=== PATIENT | male | born 1940 | race Caucasian/White ===

== ENCOUNTER 2017-06-05 07:22 | Outpatient (CLI) | payer MEDICARE, BC ==
--- NOTE | 2017-06-05 08:30 | CT ---
CT PULMONARY LUNG SCAN NONCONTRAST: History: Tobacco abuse. Shortness of breath. Low dose screening. FINDINGS: At the medial aspect of the superior segment right lower lobe, a well marginated slightly lobular no ncalcified soft tissue density nodule is 1.4 cm length x 1.5 cm depth. A 0.5 cm subpleural nodule is present within the left lower lobe anterior lung base. Scattered calcified granulomata, consistent with healed granulomatous disease. Lack of contrast limits evaluation of the mediastinum. There is calcification in the arterial struct ures. No bulky adenopathy is apparent. IMPRESSION: 1. Lung rads category 4. Suspicious finding requiring additional clinical evaluation. 2. Dominant nodule in the right lower lobe measures up to 1.5 cm greater diameter and warrants furth er evaluation. Please consider pulmonary medicine evaluation and radionuclide PET scan for further c haracterization. Code T POS: CARMELO
== END 2017-06-05 07:23 | disposition home or self-care (01) ==
LOC: CT 07:22
PROVIDERS: ATTEND Family Medicine
DX: Z87.891 Personal history of nicotine dependence (principal); R91.1 Solitary pulmonary nodule
CPT/HCPCS: G0297

== ENCOUNTER 2017-06-12 08:45 | Outpatient (CLI) | payer MEDICARE, BC ==
--- NOTE | 2017-06-12 12:22 | CT ---
CT ABDOMEN WITH AND WITHOUT CONTRAST: HISTORY: Pulmonary nodule. A pancreatic mass was seen on the chest CT. COMPARISON: CT chest from 06/05/2017. TECHNIQUE: Multiple contiguous axial images were obtained in a CT of the abdomen with and without IV contrast, and p.o. contrast was administered. Post contrast images were obtained in the arterial and portal v enous phases. FINDINGS: There is a large cystic mass involving the majority of the pancreas. This is along the body and alonso l of the pancreas and extends to the spleen. This measures 16.9 x 8.4 x 7 cm in size. There is enh ancement of the wall of this mass but no internal septations or mass-like areas of enhancement are s een in this mass. There is no significant dilatation of the pancreatic duct, and this mass appears to extend only along the anterior aspect of the pancreas. There are hypodensities in the bilateral kidneys, measuring up to 2.6 cm in size, which represent cy sts. The liver, adrenal glands, and spleen are unremarkable. The gallbladder has been removed. The visualized large and small bowel are unremarkable. The appendix is normal. Atherosclerotic donato cifications are seen in the aorta. No abdominal adenopathy is seen. Please see dedicated chest CT for findings above the diaphragm. Mild degenerative changes are seen in the spine. IMPRESSION: 1. There is a large cystic mass involving the pancreas. This does not demonstrate mass-like enhanc ement and may represent a pseudocyst. Correlate with history of pancreatitis. A cystic pancreatic neoplasm cannot be entirely excluded, and a follow-up CT in three to six months is recommended to e nsure stability. 2. Bilateral renal cysts. POS: CARMELO
== END 2017-06-12 08:46 | disposition home or self-care (01) ==
LOC: CT 08:45
PROVIDERS: ATTEND Internal Medicine Critical Care Medicine
DX: K86.89 Other specified diseases of pancreas (principal); R91.8 Other nonspecific abnormal finding of lung field; R19.00 Intra-abdominal and pelvic swelling, mass and lump, unspecified site; N28.1 Cyst of kidney, acquired
CPT/HCPCS: 74170

== ENCOUNTER 2017-06-18 13:41 | Outpatient (CLI) | payer MEDICARE, BC ==
--- NOTE | 2017-06-18 20:26 | PET ---
NUCLEAR MEDICINE FDG PET CT: (Positron Emission Tomography) DATE: 06/18/17 HISTORY: 77-year-old male with newly diagnosed right lower lobe non-small cell lung cancer. COMPARISON: None. TECHNIQUE: IV injection F-18 Fluorodeoxyglucose (FDG) dose: 10.4 mCi PET and attenuation-correction CT performed from skull base to proximal thighs. FINDINGS: SUV (standard uptake value) numbers given are maximum SUV's: Regarding the very large pancreatic low attenuation mass, the majority of the volume of the mass is not hypermetabolic. However, there are small, patchy wisps of peripheral strands of tissue with increased FDG uptake mckay t appear more solid. For example, one area located posteromedially and inferiorly has SUV of 3.8. There are no hypermetabolic mesenteric, arturo hepatis, intrahepatic, or retroperitoneal lymph nodes. There is a focus of increased FDG uptake at the splenic flexure of the colon with SUV of 9.7. This m ay or may not represent a small colon cancer, and correlation with results of latest colonoscopy is recommended. There is a long segment of contiguously increased uptake throughout the sigmoid colon w here there are numerous sigmoid colonic diverticula. This is questionable for localized sigmoid coli tis. No hypermetabolic intrapelvic lymphadenopathy. The small posteriorly located right lower lobe pulmonary nodule is not hypermetabolic (SUV 1.2). There is no abnormal FDG localization in the chest or neck. Left-sided implantable vascular access p ort is noted. IMPRESSION: 1. Of the very large, predominantly cystic pancreatic mass, small portions are mildly hypermetaboli c. 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 Percutaneous biopsy would be fred hnically very difficult. 2. A small focus of hypermetabolic activity in the distal transverse/splenic flexure of the colon. Recommend correlation with results of colonoscopy to rule out colon cancer. 3. A long segment of sigmoid colon is hypermetabolic, questionable for localized colitis. Recommend correlation with results of colonoscopy. 4. The small right lower lobe pulmonary nodule is not hypermetabolic. LELA Gama POS: CARMELO
== END 2017-06-18 13:42 | disposition home or self-care (01) ==
LOC: PET 13:41
PROVIDERS: ATTEND Internal Medicine Critical Care Medicine
DX: R91.1 Solitary pulmonary nodule (principal); C18.7 Malignant neoplasm of sigmoid colon; K86.2 Cyst of pancreas; K63.89 Other specified diseases of intestine
CPT/HCPCS: 78815; A9552

== ENCOUNTER 2017-12-24 09:03 | Outpatient (CLI) | payer MEDICARE, OTHER ==
[2017-12-24 09:41] LABS: Estimated GFR-MDRD - POC Greater than 90
--- NOTE | 2017-12-24 11:53 | CT ---
CT CHEST WITH CONTRAST: CT ABDOMEN WITH CONTRAST: HISTORY: Lung nodule (R91.1). Cyst of pancreas. COMPARISON: CT from 06/12/2017. FINDINGS: The posterior segment right lower lobe pulmonary nodule measures 1.5 cm, unchanged in size since the comparison examination. The small 4 mm nodule in the anterior segment left lower lobe is unchanged. There is fat along the left major fissure. There is atelectasis in the left lung base. No new pulmonary nodule. No focal air space consolidation, pneumothorax, or effusion. No mediastinal adenopathy. Moderate co ronary artery calcifications. There is a very mild decrease in the craniocaudad dimension of the fluid collection, abutting the ant erior pancreas, most indicative of a pseudo cyst. There are a few enhancing septations. This does n ot have the appearance of a mucinous or serous neoplasm. The liver and spleen are unremarkable. There is infrarenal aortic ectasia, measuring up to 2.5 cm, w ithout aneurysmal dilatation. Prior cholecystectomy. Bilateral renal hypodensities with a 2.5 cm right renal hypodensity with laye ring milk of calcium. IMPRESSION: 1. No interval size increase of the pulmonary nodules, which did not have activity on the PET scan, likely benign in nature. 2. Very mild size decrease of the fluid collection abutting the pancreas and the greater curvature o f the stomach, likely a pseudo cyst. Transgastric drainage may be beneficial, if clinically warrante d. Nonemergent gastrointestinal followup recommended. 3. Healing left anterior third, fourth, and fifth rib fractures. CODE LN POS: CARMELO
[2017-12-24] MEDS ORDERED: Iopamidol 370 76% 100 ML VIAL ONE (14:47)
== END 2017-12-24 09:04 | disposition home or self-care (01) ==
LOC: CT 09:03
PROVIDERS: ATTEND Internal Medicine Critical Care Medicine
DX: R91.1 Solitary pulmonary nodule (principal); R93.3 Abnormal findings on diagnostic imaging of other parts of digestive tract; R91.8 Other nonspecific abnormal finding of lung field; R18.8 Other ascites; S22.42XD Multiple fractures of ribs, left side, subsequent encounter for fracture with routine healing; Z80.0 Family history of malignant neoplasm of digestive organs
CPT/HCPCS: 71260; 74160; 82565

== ENCOUNTER 2018-06-19 09:06 | Outpatient (CLI) | payer MEDICARE, OTHER ==
--- NOTE | 2018-06-19 12:41 | CT ---
NONCONTRAST CT THORAX: 06/19/2018 HISTORY: Lung nodules bilaterally. Follow-up evaluation. COMPARISON: 12/24/2017 and 06/05/2017 FINDINGS: The posterior segment right lower lobe pulmonary nodule, measuring 1.5 cm, is again seen and is overa ll stable in size. The tiny pulmonary nodule at the anterolateral aspect of the left lower lobe, cassia suring 4 mm, is also again seen and is stable. However, there has been interval development of sever al new nodular densities within the lungs bilaterally, with slightly irregular margins and slight adj acent ground glass densities present. There is a 6 mm nodule at the inferior aspect of the right low er lobe, an 8 mm pulmonary nodule in the superior segment of the right lower lobe, an 8 mm pulmonary nodule in the left upper lobe, with a smaller, approximately 5 mm, pulmonary nodule at the lateral as pect of the left upper lobe, and an additional tiny, irregular nodular density within the medial aspe ct of the left upper lobe (image 72, series 3). Interval development of additional nodular densities with ground glass densities could be related to an infectious process, but metastatic disease cannot be excluded, and followup to resolution is recommended. The nodule in the right lower lobe is stabl e in size, dating back to a study on 06/15/2017, and no abnormal uptake is seen in this pulmonary nod ule on PET CT exam on 06/18/2017. There is minimal dependent atelectasis bilaterally. Dual-lead left subclavian cardiac pacemaker device remains in place. Vascular calcification is again seen in the coronary arteries, as well as involving the thoracic aorta. Calcified mediastinal and left hilar lymph nodes are present with a calcified granuloma again seen in the left lower lobe. The large fluid collection seen in the upper abdomen is again seen and incompletely imaged but is sta ble in size in greatest dimension, which is visualized on this exam, measuring 17.2 cm. Post cholecy stectomy changes are seen. No other interval change. IMPRESSION: 1. Stable pulmonary nodules in the bilateral lower lobes, the largest pulmonary nodule measuring 1.5 cm. However, there has been interval development of new scattered pulmonary nodules within the lung s bilaterally, as described above, which have irregular margins and slight ground glass densities. F indings could potentially be related to an infectious process, and a followup evaluation is recommend ed, as metastatic disease cannot be entirely excluded, given the multiplicity of pulmonary nodules. 2. Incompletely imaged fluid collection abutting the pancreas and greater curvature of the stomach, which may represent a large pseudocyst. This is overall stable in greatest dimension. 3. Stable, remote left-sided rib fractures. CODE T POS: SJ
== END 2018-06-19 09:07 | disposition home or self-care (01) ==
LOC: BICCT 09:06
PROVIDERS: ATTEND Internal Medicine Critical Care Medicine
DX: R91.8 Other nonspecific abnormal finding of lung field (principal); S22.32XA Fracture of one rib, left side, initial encounter for closed fracture
CPT/HCPCS: 71250

== ENCOUNTER 2018-12-16 12:23 | Outpatient (CLI) | payer MEDICARE, OTHER ==
[~2018-12-16 12:23] MED LIST: Iopamidol 370 76% 100 ML VIAL ONE
[2018-12-16 13:14] LABS: Estimated GFR-MDRD - POC Greater than 90
--- NOTE | 2018-12-16 14:03 | CT ---
EXAM: CT thorax with IV contrast CT abdomen with IV contrast PROVIDED CLINICAL HISTORY: Patient with lung nodules. Follow-up evaluation requested. Patient also has history of pancreatic pse udocyst and follow-up imaging was requested. COMPARISON: CT chest and abdomen on 12/24/[address] thorax on 06/19/2018. FINDINGS: CT thorax: A 1.6 cm right lower lobe pulmonary nodule is seen with previous measurement of 1.5 cm. A tiny approx imately 5 mm pulmonary nodule in the anterolateral aspect left lower lobe (image 41, series 3) is also again seen and stable. There were additional pulmonary nodules seen on study on 06/19/2018 which have now resolved including nodular densities within the left upper lobe and right middle lobe as well as at the anterolateral aspect of the right lower lobe which may have been related to infectious process on prior exam. A 6 mm pulmonary nodule in the left lower lobe with adjacent irregular nodular densities is also no longer visualized. No additional discrete pulmonary nodule or mass is se en in the lungs bilaterally. There is no evidence of a pleural effusion. Linear densities are seen at the left lung base probably related to atelectasis. There is no evidence of lymphadenopathy. Calcified mediastinal and left hilar lymph nodes are again s een. A left subclavian cardiac pacemaker device remains in place. Vascular calcifications are seen in the thoracic aorta. Osseous structures have a normal appearance except for minimal degenerative changes in the thoracic spine. CT abdomen: The large cystic pancreatic structure is again seen occupying the body and tail of the pancreas. This large cystic structure measures 17 cm x 8.3 cm in maximal AP dimensions with previous measurement of 17.2 cm x 8 cm. Given differences in slice selection, this has not significantly changed in size a nd again may be related to a large pancreatic pseudocyst. Postcholecystectomy changes are again seen. There is a stable 2.6 cm hypodense lesion midportion right kidney with calcification seen in the depe ndent portion of this cystic lesion. Subcentimeter too small to characterize hypodense lesions are also again seen in each kidney. The liver, spleen, and right adrenal gland have a normal CT appearance. A stable 1.3 cm left adrenal nodule is again seen, and this adrenal nodule is stable in size when compared to a prior study on 06/12/2017. Vascular calcifications are seen in the abdominal aorta involving the iliac arteries. Mild focal ecta surjit of the infrarenal abdominal aorta. There is a stable small increased density nodule which may represent calcification within the right m id abdomen posterior to the colon. The appendix is visualized and normal in caliber; although, the tip of the appendix is incompletely i earlene. Degenerative changes are again seen in the spine with left convex scoliosis of the lumbar spine. IMPRESSION: 1. Stable bilateral lower lobe pulmonary nodules measuring 1.6 cm at the right lung base and 5 mm at the left lung base. The additional previously described scattered pulmonary nodules with associated mild groundglass densities scattered within the lungs bilaterally on study of 06/19/2018 have resolve d and may have been related to infectious process given interval resolution. No new pulmonary nodule is seen. 2. 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 3. Stable subcentimeter too small to characterize hypodense lesions in each kidney with stable cystic lesion midportion right kidney with calcification seen along the posterior margin consistent with Bosniak type II cystic renal lesion. 4. Stable increased density nodule right mid abdomen posterior to the colon of uncertain etiology. 5. Stable left adrenal nodule.
== END 2018-12-16 12:24 | disposition home or self-care (01) ==
LOC: BICCT 12:23
PROVIDERS: ATTEND Internal Medicine Critical Care Medicine
DX: K86.3 Pseudocyst of pancreas (principal); Q61.8 Other cystic kidney diseases; R91.8 Other nonspecific abnormal finding of lung field
CPT/HCPCS: 71260; 74160; 82565; Q9967

== ENCOUNTER 2019-06-08 09:18 | Outpatient (CLI) | payer MEDICARE, OTHER ==
[2019-06-08 09:59] LABS: Estimated GFR-MDRD - POC Greater than 90
--- NOTE | 2019-06-08 10:40 | CT ---
EXAM: CT chest with contrast: INDICATIONS: Follow-up pulmonary nodule COMPARISON: 12/16/[address] FINDINGS: Lung leyva remain clear of infiltrate. No effusion. Pulmonary nodule in the right posterior lung is unchanged measuring 1.6 cm. 5 mm nodule in the peripheral left lower lung near the fissure is stable. Thickening of the fissure o n the left is again seen. Mediastinum unremarkable Images through upper abdomen again show a large pancreatic cystic lesion which is stable Left adrenal nodule is stable IMPRESSION: 1. Bilateral pulmonary nodules are stable from prior exam. 2. Findings in upper abdomen are stable as described
== END 2019-06-08 09:19 | disposition home or self-care (01) ==
LOC: BICCT 09:18
PROVIDERS: ATTEND Internal Medicine Critical Care Medicine
DX: R91.8 Other nonspecific abnormal finding of lung field (principal)
CPT/HCPCS: 71260; 82565

== ENCOUNTER 2020-08-10 13:18 | Outpatient (CLI) | payer MEDICARE, OTHER ==
--- NOTE | 2020-08-10 18:47 | RAD ---
PA AND LATERAL CHEST: Date: 08/10/2020 HISTORY: Dyspnea. FINDINGS: Heart size within normal limits. Pacemaker is present. Lungs are clear of any infiltrates. There is s ome linear scarring in the left base. In reviewing a previous CT of the chest of 06/08/2019, a right lower lobe pulmonary nodule is described. This is difficult to appreciate on this plain film. In revi russell the lateral view, there is a nodular density overlying one of the lower thoracic vertebral bodi es. This could represent that nodule. It measures 1.9 cm as compared to 1.[address] This is probab ly not a significant change given the differences in magnification. IMPRESSION: Pulmonary nodule best demonstrated on the lateral view of the chest, probably corresponding to the ri ght lower lobe pulmonary nodule seen on CT of 2019. POS: GEORGE
== END 2020-08-10 13:19 | disposition home or self-care (01) ==
LOC: BICRAD 13:18
PROVIDERS: ATTEND Internal Medicine Critical Care Medicine
DX: R06.00 Dyspnea, unspecified (principal); R91.1 Solitary pulmonary nodule
CPT/HCPCS: 71046

== ENCOUNTER 2021-10-02 09:31 | Outpatient (CLI) | payer MEDICARE, BC | END 2021-10-02 09:32 | disposition home or self-care (01) | LOC: RAD 09:31 | PROVIDERS: ATTEND Internal Medicine Critical Care Medicine | DX: R06.00 Dyspnea, unspecified (principal); R91.1 Solitary pulmonary nodule | CPT/HCPCS: 71046 ==

== ENCOUNTER 2022-10-03 13:51 | Outpatient (CLI) | payer MEDICARE, BC | END 2022-10-03 13:52 | disposition home or self-care (01) | LOC: RAD 13:51 | PROVIDERS: ATTEND Internal Medicine Critical Care Medicine | DX: R06.00 Dyspnea, unspecified (principal) | CPT/HCPCS: 71046 ==

== ENCOUNTER 2023-10-03 14:16 | Outpatient (CLI) | payer MEDICARE, BC | END 2023-10-03 14:17 | disposition home or self-care (01) | LOC: RAD 14:16 | PROVIDERS: ATTEND Internal Medicine Critical Care Medicine | DX: R06.00 Dyspnea, unspecified (principal) | CPT/HCPCS: 71046 ==